=== PATIENT | male | born 1990 | race Caucasian/White ===

== ENCOUNTER 2023-11-24 09:29 | Emergency (ER) | payer OTHER ==
[2023-11-24 09:34] VITALS: PULSE 89; RESP 16; TEMP 98.6; BMI 53.4
[2023-11-24] MEDS ORDERED: KETOROLAC TROMETHAMINE 30 MG/1 ML VIAL ONE (10:52)
[2023-11-24] MEDS ORDERED: METOCLOPRAMIDE HCL 10 MG TABLET (FP) PO ONE (10:52)
[2023-11-24] MEDS: KETOROLAC TROMETHAMINE 30 MG/1 ML VIAL IM ONE (11:32)
[2023-11-24] MEDS: METOCLOPRAMIDE HCL 10 MG TABLET (FP) PO ONE (11:32)
[2023-11-24 15:31] VITALS: BP 158/114
== END 2023-11-24 13:34 | disposition home or self-care (01) ==
LOC: JER 09:29
PROC: 3E0133Z Introduction of Anti-inflammatory into Subcutaneous Tissue, Percutaneous Approach (ICD-10-PCS; principal; 2023-11-24)
DX: R51.9 Headache, unspecified (principal); H57.13 Ocular pain, bilateral
CPT/HCPCS: 0241U-QW; 70450-TC; 93005; 93010; 99284-25